=== PATIENT | male | born 1985 | race Caucasian/White ===

== ENCOUNTER 2017-10-07 16:05 | Emergency (ER) | payer MEDICAID, OTHER ==
[~2017-10-07] VITALS: Ht 180.3 cm; Wt 77.1 kg
[2017-10-07] MEDS ORDERED: [UNRECOGNIZED DRUG - OTHER] (16:26)
[2017-10-07] MEDS ORDERED: OMEP20CA12 PO (16:26)
[2017-10-07] MEDS ORDERED: VITAMINS (16:26)
[2017-10-07] MEDS ORDERED: SUCR1TAB36 PO (16:26)
--- NOTE | 2017-10-07 16:57 | ED Fall/Injury ---
General Chief Complaint: Chest Wall/Rib Pain Stated Complaint: R RIB PAIN Nursing Triage Note: PT CO OF R RIB PAIN STATES FELL LAST NITE IN BATH TUB AND HAS HAD R RIB PAIN SINCE, NO BRUISING NOTED AT SIDE. PT STATES HURTS WHEN TAKES A DEEP BREATH Source: patient Exam Limitations: no limitations (CHRISTA HOLM MD) History of Present Illness Date Seen by Provider: Oct 07, 2017 Time Seen by Provider: 16:42 Initial Comments Here with complaint of right rib pain after falling last night in the bathtub at the hotel he is standing up. He is here from [place] visiting family. Complains of pain with deep breath. He is worried that he may have fractured a rib. 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 Does have history of left shoulder surgery and has been on pain meds for that but is currently not on any. That evaluation is in progress. Denies any injury to that or other injury. Denies loss of consciousness. Does report pain with deep breathing. Pain is to the lateral posterior aspect of the right ribs at about the sixth or seventh rib. Occurred: yesterday Severity: moderate Injuries/Pain Location: chest Context: slipped Loss of Consciousness: no loss of consciousness Modifying Factors: Improves With Immobilization, Worse With Movement Associated Symptoms (Fall): Chest Pain, No Nausea/Vomiting, No Neck Pain, No Shortness of Air (CHRISTA HOLM MD) Allergies and Home Medications Allergies Coded Allergies: NSAIDS (Non-Steroidal Anti-Inflamma (Verified Allergy, Unknown, 10/07/17) Penicillins (Verified Allergy, Unknown, 10/07/17) codeine (Verified Allergy, Unknown, 10/07/17) Home Medications Omeprazole 20 Mg Capsule.dr, Unknown Dose PO, (Reported) Sucralfate 1 Gm Tablet, Unknown Dose PO, (Reported) Tramadol HCl 50 Mg Tablet, 50 MG PO Q6H PRN for PAIN, #20 Ref 0 Prescribed by: CHRISTA HOLM on 10/07/171742 [Mycoprocel] , Unknown Dose, (Reported) [Vitamins] , Unknown Dose, (Reported) Constitutional: see HPI, No chills, No fever Respiratory: see HPI, No dyspnea on exertion, No short of breath, No wheezing Cardiovascular: see HPI, No edema, No palpitations Gastrointestinal: No abdominal pain, No nausea, No vomiting Musculoskeletal: see HPI, No back pain, muscle pain, No neck pain Skin: no symptoms reported (CHRISTA HOLM MD) Past Aquvgan-Cntvfc-Bzhevw Hx Patient Social History Alcohol Use: Denies Use Recreational Drug Use: No Smoking Status: Current Everyday Smoker Type Used: Cigarettes Recent Foreign Travel: No Contact w/Someone Who Travel: No Recent Infectious Disease Expo: No Recent Hopitalizations: No Physical Abuse: No Sexual Abuse: No (CHRISTA HOLM MD) Surgeries History of Surgeries: Yes (L SHOULDER, GASTRIC BYPASS) Surgeries: Abdominal (Tonie-en-Y bypass), Orthopedic (CHRISTA HOLM MD) Respiratory History of Respiratory Disorde: No Respiratory Disorders: Sleep Apnea (resolved with weight loss) (CHRISTA HOLM MD) Neurological History of Neurological Disord: No (CHRISTA HOLM MD) Genitourinary History of Genitourinary Disor: No (CHRISTA HOLM MD) Gastrointestinal History of Gastrointestinal Di: Yes Gastrointestinal Disorders: Ulcer (CHRISTA HOLM MD) Endocrine History of Endocrine Disorders: No (history of previous diabetes that resolved with weight loss) (CHRISTA HOLM MD) Psychosocial Suicide Risk Score: 0 (CHRISTA HOLM MD) Reviewed Nursing Assessment Reviewed/Agree w Nursing PMH: Yes (CHRISTA HOLM MD) Family Medical History Significant Family History: No Pertinent Family Hx (CHRISTA HOLM MD) Physical Exam Vital Signs Vital Signs - First Documented 10/07/17 16:10 Temp 97.8 Pulse 94 Resp 18 B/P (MAP) 132/74 (93) Pulse Ox 100 (ANNA PATTON) Vital Signs Capillary Refill : Less Than 3 Seconds (CHRISTA HOLM MD) General Appearance: WD/WN, no apparent distress Neck: non-tender, full range of motion, supple, normal inspection Cardiovascular: regular rate, rhythm, no murmur Respiratory: lungs clear, normal breath sounds Gastrointestinal: non tender, soft Skin: warm/dry, other (small area of redness to the lateral posterior aspect of the right ribs around the sixth or seventh rib. No ecchymosis noted. No deformity to suggest rib fracture. Tender to area of concern on palpation.) ( CHRISTA HOLM MD) Jack Coma Score Best Eye Response: (4) Open Spontaneously Best Verbal Response: (5) Oriented Best Motor Response: (6) Obeys Commands (CHRISTA HOML MD) Progress/Results/Core Measures Results/Orders Vital Signs/I&O Vital Sign - Last 12Hours 10/07/17 10/07/17 16:10 18:15 Temp 97.8 97.8 Pulse 94 94 Resp 18 18 B/P (MAP) 132/74 (93) 132/74 (93) Pulse Ox 100 100 (ANNA PATTON) Blood Pressure Mean: 93 Progress Note : Progress Note Seen and evaluated. Right ribs and chest x-ray ordered. Monitor patient. 1741 : No acute fractures noted. Discharged home with return precautions. Patient verbalize understanding instructions and agreement with plan. (CHRISTA HOLM MD) Progress Note : Progress Note [address] Holm, assumed care of patient. Radiology report obtained, no acute abnormalities. (ANNA PATTON) Diagnostic Imaging Diagonstic Imaging: Xray Plain Films/CT/US/NM/MRI: chest, other (right ribs) Comments No acute fractures. (CHRISTA HOLM MD) Comments NAME: [facility] REC#: [id number] PT STATUS: DEP ER : 1985 PHYSICIAN: CHRISTA HOLM MD ADMIT DATE: 10/07/17/ER Draft Date of Exam:10/07/17 RIBS/UNILATERAL WITH CHEST EXAMINATION: PA chest with right ribs INDICATION: Right rib pain A single PA view of the chest and 4 views of the right ribs were obtained. There are no prior studies available for comparison. The heart size is within normal limits. The lungs are clear. There is no sign of a contusion or pneumothorax. There is no evidence for pneumonia or for a pleural effusion either. The mediastinum is not widened. The views of the ribs fail to show any sign of a displaced rib fracture. No other acute abnormality is identified. However, it does appear that the distal portion of the left clavicle has been surgically resected. Correlation with the patient's surgical history would be recommended. Incidental note is made of surgical clips in the upper abdomen. IMPRESSION: There is no evidence for an acute cardiopulmonary or bony abnormality. Dictated on workstation # [id number] Dict: 10/07/17 1734 Trans: 10/07/17 1832 ABILIO [id number] Interpreted by: TELLO SERRANO MD Electronically signed by: Reviewed: Reviewed by Me (ANNA PATTON) Departure Impression Impression: Primary Impression: Rib contusion Qualified Codes: S20.211A - Contusion of right front wall of thorax, initial encounter Disposition: HOME, SELF-CARE Condition: Stable Departure-Patient Inst. Decision time for Depature: 17:42 (CHRISTA HOLM MD) Referrals: NO,LOCAL PHYSICIAN (PCP) Primary Care Physician Patient Instructions: Bruised Rib (DC) Add. Discharge Instructions: All discharge instructions reviewed with patient and/or family. Voiced understanding. You may take Tylenol/acetaminophen 1000 mg every 8 hours as needed for pain. You may take prescribed medications as directed. Return for worse pain, fever, vomiting, weakness, breathing problems or other concerns as needed. You may use icy hot with lidocaine or similar yisz-gyt-rkatydc patches to the area of concern which should help with your pain control as well. Scripts Tramadol HCl (Tramadol HCl) 50 Mg Tablet 50 MG PO Q6H Y for PAIN, #20 TAB 0 Refills Prov: CHRISTA HOLM MD 10/07/17 CHRISTA HOLM MD Oct 07, 2017 16:57 ANNA PATTON Oct 07, 2017 18:34
[2017-10-07] MEDS ORDERED: TRAM50TA2 PO (17:43)
[2017-10-07 18:15] VITALS: BP 132/74
--- NOTE | 2017-10-07 18:33 | Diagnostic Imaging Report ---
EXAMINATION: PA chest with right ribs INDICATION: Right rib pain A single PA view of the chest and 4 views of the right ribs were obtained. There are no prior studies available for comparison. The heart size is within normal limits. The lungs are clear. There is no sign of a contusion or pneumothorax. There is no evidence for pneumonia or for a pleural effusion either. The mediastinum is not widened. The views of the ribs fail to show any sign of a displaced rib fracture. No other acute abnormality is identified. However, it does appear that the distal portion of the left clavicle has been surgically resected. Correlation with the patient's surgical history would be recommended. Incidental note is made of surgical clips in the upper abdomen. IMPRESSION: There is no evidence for an acute cardiopulmonary or bony abnormality. Dictated by: Dictated on workstation # [id number]
== END 2017-10-07 18:15 | disposition home or self-care (01) ==
LOC: ER 16:08
DX: S20.211A Contusion of right front wall of thorax, initial encounter (principal); R40.2142 Coma scale, eyes open, spontaneous, at arrival to emergency department; R40.2252 Coma scale, best verbal response, oriented, at arrival to emergency department; R40.2362 Coma scale, best motor response, obeys commands, at arrival to emergency department; F17.210 Nicotine dependence, cigarettes, uncomplicated; G47.30 Sleep apnea, unspecified; Z87.19 Personal history of other diseases of the digestive system; Z88.0 Allergy status to penicillin; Z88.6 Allergy status to analgesic agent; Z88.5 Allergy status to narcotic agent; Z98.890 Other specified postprocedural states; W18.2XXA Fall in (into) shower or empty bathtub, initial encounter; Y92.59 Other trade areas as the place of occurrence of the external cause
CPT/HCPCS: 71101; 99283